=== PATIENT | female | born 2000 | race American Indian/Alaskan Native ===

== ENCOUNTER 2019-01-07 21:04 | Outpatient (CLI) | payer OTHER ==
[2019-01-07] MEDS ORDERED: PRENATAL TABLE1 EAC1 PO (21:16)
[2019-01-07] MEDS ORDERED: ZANTAC150 MG PO (21:16)
[2019-01-07] MEDS ORDERED: FOLIC ACID1 MG PO (21:16)
== END 2019-01-08 10:53 | disposition home or self-care (01) ==
LOC: OBS/DEL 21:04
DX: O23.43 Unspecified infection of urinary tract in pregnancy, third trimester (principal); Z34.03 Encounter for supervision of normal first pregnancy, third trimester

== ENCOUNTER 2019-02-13 11:10 | Inpatient (IN) | payer OTHER ==
[~2019-02-13] VITALS: Ht 162.6 cm; Wt 93.4 kg
[~2019-02-13 11:10] MED LIST: FOLIC ACID1 MG PO; PRENATAL TABLE1 EAC1 PO; ZANTAC150 MG PO
== END 2019-02-17 12:40 | disposition home or self-care (01) | DRG 833 ==
LOC: LDR 11:10 → OB/GYN 11:10
PROVIDERS: ADMIT Obstetrics & Gynecology
PROC: BY4FZZZ Ultrasonography of Third Trimester, Single Fetus (ICD-10-PCS; principal; 2019-02-13)
PROC: BY4FZZZ Ultrasonography of Third Trimester, Single Fetus (ICD-10-PCS; 2019-02-13)
PROC: 4A1HXCZ Monitoring of Products of Conception, Cardiac Rate, External Approach (ICD-10-PCS; 2019-02-13)
DX: O60.03 Preterm labor without delivery, third trimester (principal); Z34.03 Encounter for supervision of normal first pregnancy, third trimester

== ENCOUNTER 2019-03-09 16:08 | Inpatient (IN) | payer OTHER ==
[~2019-03-09] VITALS: Ht 162.6 cm; Wt 95.3 kg
== END 2019-03-12 10:32 | DRG 807 ==
LOC: OBS/DEL 16:08 → OB/GYN 17:45 → LDR 17:45 → OB/GYN 03-10 02:33
PROVIDERS: ADMIT Obstetrics & Gynecology
PROC: 4A1HXCZ Monitoring of Products of Conception, Cardiac Rate, External Approach (ICD-10-PCS; 2019-03-09)
PROC: 10E0XZZ Delivery of Products of Conception, External Approach (ICD-10-PCS; principal; 2019-03-10)
PROC: 0UQGXZZ Repair Vagina, External Approach (ICD-10-PCS; 2019-03-10)
DX: O71.4 Obstetric high vaginal laceration alone (principal); Z37.0 Single live birth; Z3A.37 37 weeks gestation of pregnancy